=== PATIENT | female | born 1960 | race American Indian/Alaskan Native ===

== ENCOUNTER 2018-01-19 18:16 | Emergency (ER) | payer OTHER ==
[2018-01-19 18:16] VITALS: BMI 18.9
[2018-01-19 18:34] VITALS: BP 137/66; PULSE 95; RESP 16; TEMP 98.1; O2SAT 100
--- NOTE | 2018-01-19 19:53 | ED PDOC ---
HPI: Wound Care - HPI Time Seen by Provider: 01/19/18 18:36 Chief Complaint (Nursing): Wound Check Chief Complaint (Provider): suture removal History Per: Patient Exam Limitations: no limitations Additional Complaint(s): Mamie Medrano, a 57 year old female with no significant past medical history, presents to the ED for suture removal of 7 sutures to the right eyebrow. Patient denies pain and states she has been applying antibiotic ointment. No further medical complaints. Past Medical History Reviewed: Historical Data, Nursing Documentation, Vital Signs Vital Signs: Last Vital Signs Temp 98.1 F 01/19/18 18:32 Pulse 95 H 01/19/18 18:32 Resp 16 01/19/18 18:32 BP 137/66 01/19/18 18:32 Pulse Ox 100 01/19/18 18:32 - Family History Family History: States: Unknown Family Hx - Home Medications Home Medications: Ambulatory Orders Medication Instructions Recorded Cyclobenzaprine [Cyclobenzaprine 10 mg PO TID #15 tab 07/17/17 HCl] Lidocaine 5% [Lidoderm] 1 patch TP DAILY #30 patch 07/17/17 RX: Ibuprofen [Motrin Tab] 400 mg PO Q8 #30 tab 07/17/17 - Allergies Allergies/Adverse Reactions: Allergies Allergy/AdvReac Type Severity Reaction Status Date / Time No Known Allergies Allergy Verified 08/31/17 13:25 Review of Systems ROS Statement: Except As Marked, All Systems Reviewed And Found Negative Constitutional: Negative for: Other (no pain with sutures) Physical Exam - Reviewed Nursing Documentation Reviewed: Yes Vital Signs Reviewed: Yes - Physical Exam Appears: Positive for: Well, Non-toxic, No Acute Distress Head Exam: Positive for: ATRAUMATIC, NORMAL INSPECTION, NORMOCEPHALIC Skin: Positive for: Normal Color, Warm Eye Exam: Positive for: Normal appearance ENT: Positive for: Normal ENT Inspection Neck: Positive for: Normal Cardiovascular/Chest: Negative for: Bradycardia, Tachycardia Respiratory: Negative for: Accessory Muscle Use, Respiratory Distress Gastrointestinal/Abdominal: Positive for: Normal Exam Back: Positive for: Normal Inspection Extremity: Positive for: Normal ROM Neurologic/Psych: Positive for: Alert Comments: well healing 3 cm laceration to right eyebrow, 7 sutures intact with no surrounding erythema, no drainage - ECG O2 Sat by Pulse Oximetry: 100 (RA) Pulse Ox Interpretation: Normal Medical Decision Making Medical Decision Making: Time: 18:36 Initial Impression: Initial Plan: -sutures easily removed with 11 blade Scribe Attestation: Documented by Abi Palacio, acting as a scribe for Eliane Fregoso PA-C. Provider Scribe Attestation: All medical record entries made by the Scribe were at my direction and personally dictated by me. I have reviewed the chart and agree that the record accurately reflects my personal performance of the history, physical exam, medical decision making, and the department course for this patient. I have also personally directed, reviewed, and agree with the discharge instructions and disposition. Disposition - Clinical Impression Clinical Impression: Visit for suture removal - Patient ED Disposition Is Patient to be Admitted: No Counseled Patient/Family Regarding: Diagnosis, Need For Followup - Disposition Disposition: Routine/Home Disposition Time: 19:51 Condition: GOOD Instructions: Stitches Removal Forms: [employer] (Green[place]ic)
== END 2018-01-19 20:09 | disposition home or self-care (01) ==
LOC: H.ER 18:16
DX: Z48.02 Encounter for removal of sutures (principal)